=== PATIENT | male | born 1980 | race African-American/Black ===

== ENCOUNTER 2024-04-11 20:14 | Emergency (ER) | payer SELFPAY ==
[~2024-04-11] VITALS: Ht 188 cm; Wt 77.1 kg
[2024-04-11] MEDS: IV NS 0.9% 1,000 ML BAG IV ONE (21:00)
[2024-04-11 21:24] VITALS: BP 147/84; TEMP 98.1; O2SAT 97
== END 2024-04-11 21:27 | disposition left against medical advice (07) ==
LOC: ER 20:16
DX: R56.9 Unspecified convulsions (principal); E11.65 Type 2 diabetes mellitus with hyperglycemia
CPT/HCPCS: 99283; 96360; J7030